=== PATIENT | female | born 2000 | race Caucasian/White ===

== ENCOUNTER 2024-03-12 18:37 | Emergency (ER) | payer SELFPAY ==
[~2024-03-12] VITALS: Ht 152.4 cm; Wt 99.8 kg
[2024-03-12] MEDS ORDERED: VENLAFAXINE HYD75 M3 PO (18:52)
[2024-03-12 19:37] LABS: BASO # 0.1 10*3/uL (0.0-0.1); BASO % 0.4 % (0.0-1.0); EOS # 0.1 10*3/uL (0.0-0.4); EOS % 0.8 % (1.0-4.0); HEMATOCRIT 36.8 % (37.0-47.0); LYMPH # 3.5 10*3/uL (1.3-4.4); MEAN CELL VOLUME 84.4 fl (81.0-99.0); MEAN CORPUSCULAR HGB 28.7 pg (27.0-31.0); MEAN PLATELET VOLUME 9.6 fl (9.6-12.3); MONO # 0.9 10*3/uL (0.1-1.0); MONO % 6.9 % (3.0-9.0); NEUT # 8.3 10*3/uL (2.3-7.9); NEUT % 64.4 % (47.0-73.0); PLATELET COUNT AUTOMATED 235 10*3/uL (130-400); RED BLOOD COUNT 4.36 10*6/uL (4.10-5.10); RED CELL DISTRI WIDTH 12.3 % (0-14.5); WHITE BLOOD COUNT 12.9 10*3/uL (4.8-10.8)
[2024-03-12 20:02] LABS: BUN 9 mg/dl (9-23); CHLORIDE 104 mmol/L (98-107); POTASSIUM 3.5 mmol/L (3.4-5.1)
[2024-03-12] MEDS ORDERED: PRILOSEC20 M1 PO (21:04)
[2024-03-12] MEDS ORDERED: MG-AL HYDROXIDE/SIMETICONE 30 ML UDC PO STA (21:05)
[2024-03-12] MEDS ORDERED: Lidocaine Hydrochloride 15 ML UDC PO STA (21:05)
[2024-03-12] MEDS ORDERED: Dicyclomine Hydrochloride 20 MG/10 ML OSYR PO STA (21:05)
== END 2024-03-12 21:21 | disposition home or self-care (01) ==
LOC: ED 18:37
PROVIDERS: Nurse Practitioner Family
DX: K21.9 Gastro-esophageal reflux disease without esophagitis (principal); F41.9 Anxiety disorder, unspecified; F32.A Depression, unspecified